=== PATIENT | female | born 1955 | race Caucasian/White ===

== ENCOUNTER 2017-05-13 08:07 | Emergency (ER) | payer MEDICAID ==
[2017-05-13 08:08] VITALS: BMI 21.9
[2017-05-13 08:12] VITALS: TEMP 97.9
[2017-05-13] MEDS ORDERED: Sodium Chloride 0.9% 1,000 ML IV ONE (09:12)
[2017-05-13] MEDS ORDERED: Iohexol 240 (50 ml) PO STA (09:12)
[2017-05-13] MEDS ORDERED: Iohexol 240 (50 ml) ONE (09:19)
[2017-05-13] MEDS ORDERED: Sodium Chloride 0.9% 1,000 ML ONE (09:19)
[2017-05-13 09:46] LABS: BASO % 0.5 % (0.0-2.0); HEMATOCRIT 41.7 % (34.0-47.0); LYMPH # 0.8 K/uL (1.0-4.3); LYMPH % 21.3 % (20.0-40.0); MEAN CORPUSCULAR HEMOGLOBIN 30.1 pg (27.0-31.0); MEAN CORPUSCULAR HGB CONC 33.9 g/dL (33.0-37.0); MEAN PLATELET VOLUME 8.5 fL (7.2-11.7); MONO # 0.4 K/uL (0.0-0.8); MONO % 10.6 % (0.0-10.0); NRBC % 0.1 % (0.0-2.0); RED CELL DISTRIBUTION WIDTH 13.7 % (11.5-14.5)
[2017-05-13 09:48] LABS: RBC URINE 6 /hpf (0-3); URINE BILIRUBIN NEGATIVE (NEGATIVE); URINE BLOOD 1+ (NEGATIVE); URINE COLOR Yellow (YELLOW); URINE GLUCOSE (UA) NORMAL (Normal); URINE KETONE NEGATIVE (NEGATIVE); URINE LEUKOCYTE ESTERASE NEG Leu/uL (Negative); URINE PROTEIN NEGATIVE (NEGATIVE); URINE UROBILINOGEN NORMAL mg/dL (0.2-1.0); WBC URINE 2 /hpf (0-5)
[2017-05-13 09:50] LABS: CHLORIDE 106 mmol/L (98-107); POTASSIUM 3.8 mmol/L (3.6-5.2); SODIUM 140 mmol/L (132-148)
[2017-05-13 09:52] LABS: GFR AFRICAN-AMERICAN > 60
[2017-05-13 09:53] LABS: ALB/GLOB RATIO 1.2 (1.0-2.1); ALKALINE PHOSPHATASE 99 U/L (38-126); ALT/SGPT 46 U/L (9-52); AST/SGOT 36 U/L (14-36); BILIRUBIN,TOTAL 0.8 mg/dL (0.2-1.3); BLOOD UREA NITROGEN 14 mg/dL (7-17); CARBON DIOXIDE 19 mmol/L (22-30); GLUCOSE,RANDOM 84 mg/dL (65-105); TOTAL PROTEIN 7.8 g/dL (6.3-8.3)
[2017-05-13 09:57] LABS: MEAN CELL VOLUME 88.7 fL (81.0-99.0); WHITE BLOOD COUNT 3.8 K/uL (4.8-10.8)
--- NOTE | 2017-05-13 10:55 | C.PDOC ---
History Of Present Illness 61 y/o female presents to ED for evaluation of abdominal pain associated with nausea, and watery diarrhea for the last 3 days. Pt states that pain is mostly in the epigastric region that radiates to periumilical, and right side of abdomen. Pt also reports subjective fever, and decrease in PO intake. Otherwise , denies vomiting, urinary symptoms, back pain, chest pain, shortness of breath , or any other associate symptoms at this time. Pt notes that she has history of "liver inflammation", and unclear "gallbladder problems". Time Seen by Provider: 05/13/17 08:55 Chief Complaint (Nursing): Abdominal Pain History Per: Patient History/Exam Limitations: no limitations Onset/Duration Of Symptoms: Days (3) Current Symptoms Are (Timing): Still Present Location Of Pain/Discomfort: Epigastric, Periumbilical Radiation Of Pain To:: None Quality Of Discomfort: "Pain" Associated Symptoms: Fever, Nausea, Diarrhea, Loss Of Appetite. denies: Vomiting, Back Pain, Chest Pain, Constipation, Urinary Symptoms Exacerbating Factors: None Alleviating Factors: None Recent travel outside of the [place]: No Additional History Per: Patient Abnormal Vaginal Bleeding: No Past Medical History Reviewed: Historical Data, Nursing Documentation, Vital Signs Vital Signs: Last Vital Signs Temp 97.9 F 05/13/17 08:11 Pulse 76 05/13/17 14:58 Resp 16 05/13/17 14:58 BP 111/69 05/13/17 14:58 Pulse Ox 96 05/13/17 14:58 - Medical History PMH: Hypercholesterolemia Denies: Chronic Kidney Disease Surgical History: Appendectomy - [facility] Procedures LAPAROSCOP APPENDECTOMY (04/04/14) Family History: States: No Known Family Hx - Social History Hx Tobacco Use: No Hx Alcohol Use: No Hx Substance Use: No - Immunization History Hx Tetanus Toxoid Vaccination: No Hx Influenza Vaccination: No Hx Pneumococcal Vaccination: No Review Of Systems Constitutional: Positive for: Fever (subjective) Cardiovascular: Negative for: Chest Pain, Palpitations, Edema, Light Headedness Respiratory: Negative for: Cough, Shortness of Breath Gastrointestinal: Positive for: Nausea, Abdominal Pain, Diarrhea. Negative for : Vomiting, Constipation, Melena, Hematochezia Genitourinary: Negative for: Dysuria, Frequency, Incontinence, Hematuria Musculoskeletal: Negative for: Back Pain Neurological: Negative for: Headache, Dizziness Physical Exam - Physical Exam Appears: Non-toxic, Other (thin, uncomfortable) Skin: Normal Color, Warm, Dry, No Rash Head: Atraumatic, Normacephalic Eye(s): bilateral: Normal Inspection, EOMI Oral Mucosa: Dry Neck: Supple Chest: Symmetrical Cardiovascular: Rhythm Regular, No Murmur Respiratory: No Accessory Muscle Use, No Rales, No Rhonchi, No Wheezing Gastrointestinal/Abdominal: Soft, Tenderness (epigastric, RUQ), No Distention, No Guarding, No Rebound Back: No CVA Tenderness Extremity: Normal ROM, No Pedal Edema Neurological/Psych: Oriented x3, Normal Speech ED Course And Treatment - Laboratory Results Result Diagrams: 05/13/17 09:39 05/13/17 09:39 O2 Sat by Pulse Oximetry: 99 (on RA) Pulse Ox Interpretation: Normal - CT Scan/US Abd & pelvis CT Other Rad Studies (CT/US): Read By Radiologist, Radiology Report Reviewed CT/US Interpretation: IMPRESSION: Status post appendectomy. Mild wall thickening of the sigmoid colon likely due to underdistention peristalsis and possibly some unopacified stool ; possibility of a colitis is less likely as there are no obvious inflammatory changes seen in the adjacent mesentery however not completely excluded. Clinical correlation recommended. There is also slight wall thickening of the stomach likely due to underdistention. Possibility of gastritis or other intrinsic/invasive wall lesion not excluded. Clinical correlation recommended. Few small nonspecific mesenteric lymph nodes. Mild fatty hepatic infiltration. Small exophytic left renal cyst. Medical Decision Making Medical Decision Making: Abd & pelvis CT, blood work, UA ordered and reviewed. Pt was given Omnipaque, Pepcid, Zofran, and IV fluids. 230 pm pt reports feeling better. no diarrhea in ed, no more nausea, abdominal pain resolved. ct reports ? colitis; pt has no tenderness in llq, unlikely. pt tolerating po fluids in ed. will d/c pt home wiht pepcd, for gastritis, and f/u with pmd and with gi. pt to be given ct result to bring to gi. Disposition Counseled Patient/Family Regarding: Studies Performed, Diagnosis, Need For Followup, Rx Given - Disposition Referrals: Kel Choe MD [Medical Doctor] - Samir Abel MD [Staff Provider] - Disposition: HOME/ ROUTINE Disposition Time: 14:54 Condition: IMPROVED Additional Instructions: Seguimiento con gutierrez pmd y con el Dr. Abel (gastroenterlogo), mostrar a continuacin, copia de los resultados de ct scan; [place] pepcid segn lo prescrito. Coma piper dieta suave, con fibra baja por unos rose. Vuelva a la ruben de emergencias para cualquier empeoramiento de los sntomas. Prescriptions: Famotidine [Pepcid] 20 mg PO DAILY #14 tab Instructions: Gastritis (ED), Acute Diarrhea (ED) Forms: Gen Discharge Inst Hebrew, Mobile Ads (Hebrew) Print Language: SCOTTISH - Clinical Impression Clinical Impression: Gastritis, Abdominal pain - PA / ASSET AVAILABILITY LEADER / Resident Statement MD/DO has reviewed & agrees with the documentation as recorded. - Scribe Statement The provider has reviewed the documentation as recorded by the Scribe Scooter Kirkpatrick All medical record entries made by the Scribe were at my direction and personally dictated by me. I have reviewed the chart and agree that the record accurately reflects my personal performance of the history, physical exam, medical decision making, and the department course for this patient. I have also personally directed, reviewed, and agree with the discharge instructions and disposition.
[2017-05-13] MEDS ORDERED: Iodixanol 320 MG/ML 100 ML BOTTLE IV ONE (12:02)
--- NOTE | 2017-05-13 12:58 | CT ---
PROCEDURE: CT abdomen and pelvis dated 05/13/2017. HISTORY: Abdominal pain COMPARISON: Comparison made with prior study 04/04/2014 TECHNIQUE: Contiguous axial images of the abdomen and pelvis performed following oral and intravenous injection of approximately 100 cc of of Visipaque 320 contrast material. . Coronal and Sagittal reformats generated. This CT exam was performed using one or more of the following dose reduction techniques: Automated exposure control, adjustment of the mA and/or kV according to patient size, and/or use of iterative reconstruction technique. Total exam DLP = 273.07 mGy-cm. FINDINGS: LOWER THORAX: Heart size within range of normal. No significant pericardial effusion. Mild atelectasis both lung bases. No evidence of basilar pneumothorax or effusion. LIVER: Liver exhibits normal size measuring approximately 16.6 cm in CC dimension. Mild -moderate diffuse fatty hepatic infiltration. . No obvious hepatic mass or collection. Portal and splenic veins are opacified. GALLBLADDER AND BILE DUCTS: Unremarkable. PANCREAS: Unremarkable. No mass. No ductal dilatation. SPLEEN: Unremarkable. No splenomegaly. ADRENALS: Unremarkable. KIDNEYS AND URETERS: Kidneys demonstrate symmetric nephrograms. No evidence of nephrolithiasis or hydronephrosis. . Prominent right extrarenal pelvis Small exophytic cyst left kidney. BLADDER: Urinary bladder is physiologically distended. No evidence of intraluminal urinary bladder calculi. . REPRODUCTIVE: Uterus appears grossly unremarkable. APPENDIX: Status post appendectomy. . There are a few small of radiopaque densities along the posterior inferior margin of the cecum likely representing suture material. BOWEL: Evaluation of the bowel is somewhat limited due to incomplete opacification. The stomach is nondistended which presumably accounts for thick-walled appearance. Possibility of gastritis or other intrinsic/invasive wall lesion cannot be excluded. Clinical correlation recommended to determine whether additional follow-up is required. . Visualized loops of small bowel exhibit normal contour and caliber. No evidence of acute mechanical small bowel obstruction. There is mild wall thickening of the sigmoid colon likely due to underdistention peristalsis and possibly some unopacified stool ; possibility of a colitis is less likely as there are no obvious inflammatory changes seen in the adjacent mesentery however not completely excluded. Clinical correlation recommended. PERITONEUM: Unremarkable. No fluid collection. No free air. Small fat containing umbilical hernia. LYMPH NODES: Few small nonspecific mesenteric lymph nodes. VASCULATURE: Unremarkable. No aortic aneurysm. BONES: Mild multilevel degenerative spondylosis of the lower thoracic and lumbar spine. There is also slight levoscoliosis centered at approximately the L1-L2 level. OTHER FINDINGS: None. IMPRESSION: Status post appendectomy. Mild wall thickening of the sigmoid colon likely due to underdistention peristalsis and possibly some unopacified stool ; possibility of a colitis is less likely as there are no obvious inflammatory changes seen in the adjacent mesentery however not completely excluded. Clinical correlation recommended. There is also slight wall thickening of the stomach likely due to underdistention. Possibility of gastritis or other intrinsic/invasive wall lesion not excluded. Clinical correlation recommended. Few small nonspecific mesenteric lymph nodes. Mild fatty hepatic infiltration. Small exophytic left renal cyst.
[2017-05-13 14:58] VITALS: BP 111/69; PULSE 76; RESP 16
[2017-05-13 18:32] VITALS: O2SAT 99
== END 2017-05-13 15:08 | disposition home or self-care (01) ==
LOC: C.ER 08:07
DX: K29.70 Gastritis, unspecified, without bleeding (principal); R10.13 Epigastric pain
CPT/HCPCS: 74177; 80053; 81001; 83690; 85025; 96361; 96374; 96375; 99284; J2405; J7040; Q9966; Q9967